=== PATIENT | female | born 1980 | race Caucasian/White ===

== ENCOUNTER 2016-08-30 13:24 | Emergency (ER) | payer OTHER ==
[~2016-08-30] VITALS: Ht 154.9 cm; Wt 60.0 kg
[2016-08-30 14:01] VITALS: BP 126/86
== END 2016-08-30 16:36 | disposition home or self-care (01) ==
LOC: ER 13:31
DX: J06.9 Acute upper respiratory infection, unspecified (principal)
CPT/HCPCS: 71010; 81025; 99283

== ENCOUNTER 2016-09-17 04:07 | Emergency (ER) | payer MEDICAID, OTHER ==
[~2016-09-17] VITALS: Ht 152.4 cm; Wt 60.0 kg
[2016-09-17] MEDS ORDERED: KETOROLAC 60MG/2ML VIAL IM STA (05:29)
[2016-09-17 06:58] LABS: BASOPHILS % 1.4 % (0.0-2.0); EOSINOPHILS % 3.7 % (0.0-5.0); HEMATOCRIT. 39.5 % (36.0-48.0); HEMOGLOBIN. 13.5 g/dL (12.0-16.0); LYMPHOCYTES % 39.2 % (20.0-50.0); MEAN CORPUSCULAR HEMOGLOBIN 30.7 pg (28.0-32.0); MEAN CORPUSCULAR VOLUME 90.1 fL (81.0-99.0); MEAN PLATELET VOLUME 7.6 fl (7.4-10.4); MONOCYTES % 5.9 % (2.0-8.0); NEUTROPHILS % 49.8 % (40.0-76.0); PLATELET 277 x1000/uL (130-400); RED BLOOD CELL COUNT 4.39 mill/uL (4.2-5.4); WHITE BLOOD COUNT 5.9 x1000/uL (4.5-11.0)
[2016-09-17 07:08] LABS: CALCIUM 8.8 mg/dL (8.5-10.1); CARBON DIOXIDE 27 mEq/L (21-32); INDEX HEMOLYSI 1 (1-3); INDEX ICTERIC 1 (1-4); INDEX LIPEMIC 1 (1-3); UREA NITROGEN BLOOD 13 mg/dL (7-21); eGFR > 60 mL/min (>60)
[2016-09-17 07:16] LABS: ANION GAP 12; CHLORIDE 106 mEq/L (98-107)
[2016-09-17 07:25] LABS: HCG SCREEN NEGATIVE
[2016-09-17 09:15] VITALS: BP 118/70
== END 2016-09-17 09:17 | disposition home or self-care (01) ==
LOC: ER 06:12
DX: N64.4 Mastodynia (principal); M79.602 Pain in left arm
CPT/HCPCS: 36415; 71010; 76641; 80048; 84703; 85025; 93005; 96372; 99285; J1885; Z7610

== ENCOUNTER 2017-01-19 08:38 | Emergency (ER) | payer OTHER ==
[~2017-01-19] VITALS: Ht 162.6 cm; Wt 60.0 kg
[2017-01-19 10:16] LABS: CARBON DIOXIDE 29 mEq/L (21-32); CHLORIDE 106 mEq/L (98-107)
[2017-01-19] MEDS ORDERED: IBUPROFEN 600MG TABLET PO ONE (10:30)
[2017-01-19 11:11] VITALS: BP 112/64
== END 2017-01-19 11:21 | disposition home or self-care (01) ==
LOC: ER 08:38
DX: M79.672 Pain in left foot (principal); M79.671 Pain in right foot
CPT/HCPCS: 36415; 73650; 80048; 81025; 93970; 99285; Z7610